=== PATIENT | female | born 1995 | race Caucasian/White ===

== ENCOUNTER 2018-04-28 13:58 | Emergency (ER) | payer SELFPAY ==
--- NOTE | 2018-04-28 15:08 | EDPHY ---
General - History Smoking Status: Never smoked Time Seen by Provider: 04/28/18 14:39 Narrative: CHIEF COMPLAINT: Possible allergic reaction to prednisone HISTORY OF PRESENT ILLNESS: Patient presents with complaints of possible allergic reaction to prednisone. She says that she thinks she is having this because she has had some sore throat , vaginal itching and pain and this started after taking prednisone on Thursday. She said this initially started on [place] She felt as though she was having a reaction to this and presented here. At that time she had hives, itching, rash and difficulty swallowing. She was treated with prednisone and Benadryl. The symptoms improved until last night. She now has the above complaints that it began to worsen. She has no discharge. No urinary complaints. No flank pain. She reports multiple episodes of intercourse with a single partner over the past week as she is here visiting her boyfriend. No other associated complaints or modifying factors. MEDICAL/SURGICAL/SOCIAL HISTORY: Uncomplicated. Does report a tick bite when she was 9 years old REVIEW OF SYSTEMS: Ten systems reviewed and are negative unless otherwise noted in the HPI EXAMINATION General Appearance: Alert, no distress Head: normocephalic, atraumatic Neck: Supple nontender without meningismus or rigidity. ENT: Airway is widely patent with midline uvula. There is minimal erythema of the pharynx. No asymmetry of the tonsils. Cardiovascular: Pulses normal throughout. Brisk cap refill Abdominal: No tenderness palpation. There is no rigidity, guarding or palpable mass. : Female RN (Deepa) present for exam. Neurological: A&O, sensory symmetric, strength symmetric Skin: Warm and dry, no rash. No petechiae or purpura Extremities: Nontender, no pedal edema DIFFERENTIAL DIAGNOSES: Including but not limited to vulvovaginitis, yeast infection, bacterial vaginosis, pharyngitis, allergic reaction MDM: 3:00 p.m. Sore throat, vaginal discomfort, vaginal itching and concern for allergic reaction from the patient. She is well-appearing and nontoxic. She was initially in the family room, and I asked her to be moved to room with source for genital examination. 3:20 p.m. Rapid strep test is pending. I recommended a pelvic examination, but the patient has declined. I do feel it is reasonable for declined at this time she has full capability of making a decision based on risks, benefits and alternatives. We will proceed with urinalysis testing. 4:00 p.m. There was a complication with the swab that was provided to the lab, thus they were not able to run the test. We will re-perform this. 4:30 p.m. Rapid strep test is negative. Bacterial vaginosis panel is pending. GC and chlamydia test will return tomorrow morning. I had a very lengthy discussion with patient regarding possibility of sexually transmitted infection, for which she expresses a low concern. She says that she would like to wait for the results of the gonorrhea chlamydia test tomorrow morning and not proceed with prophylactic or empiric treatment. We discuss treatment with pain medication as needed. We discussed that her Gardnerella, Imelda and Trichomonas laboratory results are pending at this time, and that Charisse Lito POWELL will assume care at this time and discussed the results of those tests with her prior to discharge home today. Please see her note for further care and final disposition. SUPERVISION: This patient was independently evaluated without direct involvement of or examination by the attending physician. ED Precautions: Worsening pain. Erythema, edema, cyanosis, pallor, paresthesia or anesthesia. (Jordy De León) - Objective Vital Signs: Initial Vital Signs Temperature (C) 98.1 F 04/28/18 14:16 Heart Rate 102 H 04/28/18 14:16 Respiratory Rate 16 04/28/18 14:16 Blood Pressure 121/71 H 04/28/18 14:16 O2 Sat (%) 98 04/28/18 14:16 O2 Delivery Mode Room Air Allergies/Adverse Reactions: Milk Containing Products [dairy] Allergy (Verified 04/28/18 14:16) wheat Allergy (Verified 04/28/18 14:16) Home Medications: Medication Instructions Recorded predniSONE [predniSONE TAPER] 10 mg PO DAILY 6 Days ea 04/26/18 Benadryl 04/28/18 Hydrocodone/APAP 5/325 [[place] 1 - 2 tab PO Q4H PRN #7 tab 04/28/18 5/325 (*)] metroNIDAZOLE 0.75% [Vandazole 1 applic VG HS #5 tube 04/28/18 Vaginal Gel] Laboratory Results: 04/28/18 04/28/18 Unknown 15:35 C.trachomatis RNA (TMA) NEGATIVE (NEGATIVE) N.gonorrhoeae RNA (TMA) NEGATIVE (NEGATIVE) Group A Strep DNA NEGATIVE (NEGATIVE) Departure - Departure Disposition: Home, Routine, Self-Care Clinical Impression: Vulvovaginal pain Acute pharyngitis Qualifiers: Pharyngitis/tonsillitis etiology: unspecified etiology Qualified Code(s): J02.9 - Acute pharyngitis, unspecified Condition: Good Instructions: Pharyngitis (ED), Vaginitis (ED) Additional Instructions: 1. Medications as prescribed to completion 2. We will contact you on morning with results of the gonorrhea and chlamydia testing. If you have not heard from us by noon, contact us at 3. Return to emergency department for any worsening pain, difficulty breathing or swallowing, shortness of breath or systemic rash 4. Continue your antihistamine [id number] as needed . Referrals: Jeremiah Cadena DO [Medical Doctor] - As per Instructions Physician,Emergency Dept, [Medical Doctor] - As per Instructions Prescriptions: Hydrocodone/APAP 5/325 [[place] 5/325 (*)] 1 - 2 tab PO Q4H PRN #7 tab PRN Reason: Pain, Moderate metroNIDAZOLE 0.75% [Vandazole Vaginal Gel] 1 applic VG HS #5 tube
[2018-04-28 18:15] VITALS: BP 118/73
[2018-04-29 12:31] LABS: GC AMPLIFICATION GENPROBE NEGATIVE (NEGATIVE)
== END 2018-04-28 18:14 | disposition home or self-care (01) ==
DX: J02.9 Acute pharyngitis, unspecified (principal); R10.2 Pelvic and perineal pain